=== PATIENT | male | born 1970 | race Asian ===

== ENCOUNTER 2017-04-29 17:08 | Outpatient (CLI) | payer BC ==
[~2017-04-29 17:08] MED LIST: ALBU90AE13 INH; BUT/APAP/CA1 PO; CEFU250T2 PO; FLUT0.05 NAS; PANT40TA PO; UNITH DIRECT75 MCG PO
[2017-04-29 17:28] LABS: PLATELET COUNT 257 K/uL (142-355)
[2017-04-29 17:54] LABS: POTASSIUM 3.5 mmol/L (3.6-5.2); SODIUM 140 mmol/L (136-145)
== END 2017-04-29 19:05 | disposition home or self-care (01) ==
LOC: LABW 17:08
PROVIDERS: Physician Assistant
DX: R51 Headache (principal); M54.2 Cervicalgia; M79.1 Myalgia; R35.8 Other polyuria
CPT/HCPCS: 36415; 80053; 83735; 84439; 84443; 85027

== ENCOUNTER 2017-06-15 10:17 | Outpatient (CLI) | payer BC | END 2017-06-15 11:20 | disposition home or self-care (01) | LOC: RAD 10:17 | DX: J01.00 Acute maxillary sinusitis, unspecified (principal); J20.9 Acute bronchitis, unspecified ==

== ENCOUNTER 2017-07-07 04:42 | Emergency (ER) | payer BC ==
[~2017-07-07] VITALS: Ht 165.1 cm; Wt 105.7 kg
[2017-07-07] MEDS ORDERED: TESSALON PER100 MG PO (05:00)
[2017-07-07] MEDS ORDERED: METH4PAK3 PO (05:01)
[2017-07-07] MEDS ORDERED: Z-PAK PO (05:02)
[2017-07-07 05:58] LABS: PLATELET COUNT 275 K/uL (142-355)
[2017-07-07 06:42] VITALS: BP 139/97; TEMP 98
== END 2017-07-07 06:51 | disposition home or self-care (01) ==
LOC: ED 04:42
PROVIDERS: Emergency Medicine
DX: J45.909 Unspecified asthma, uncomplicated (principal)
CPT/HCPCS: 36415; 85027; 94640; 94664; 99283

== ENCOUNTER 2017-10-24 12:07 | Day surgery (SDC) | payer BC ==
[~2017-10-24 12:07] MED LIST changes: +METH4PAK3 PO; +TESSALON PER100 MG PO; +Z-PAK PO
[2017-10-24 12:34] LABS: PLATELET COUNT 257 K/uL (142-355)
== END 2017-10-24 16:30 | disposition home or self-care (01) ==
LOC: OR 12:07
PROVIDERS: Internal Medicine Gastroenterology
PROC: 0DB68ZZ Excision of Stomach, Via Natural or Artificial Opening Endoscopic (ICD-10-PCS; principal; 2017-10-24)
PROC: 0DB88ZZ Excision of Small Intestine, Via Natural or Artificial Opening Endoscopic (ICD-10-PCS; 2017-10-24)
DX: K21.0 Gastro-esophageal reflux disease with esophagitis (principal); K29.50 Unspecified chronic gastritis without bleeding; R10.13 Epigastric pain; R14.3 Flatulence; R14.0 Abdominal distension (gaseous); R10.9 Unspecified abdominal pain
CPT/HCPCS: 80053; 85027; J2001; J2250; J2704

== ENCOUNTER 2018-03-03 08:15 | Outpatient (CLI) | payer BC ==
[2018-03-03 08:29] LABS: PLATELET COUNT 254 K/uL (142-355)
[2018-03-03 09:02] LABS: POTASSIUM 3.8 mmol/L (3.6-5.2)
== END 2018-03-03 22:29 | disposition home or self-care (01) ==
LOC: LABW 08:15
PROVIDERS: Internal Medicine
DX: R53.83 Other fatigue (principal); E78.00 Pure hypercholesterolemia, unspecified
CPT/HCPCS: 36415; 80053; 80061; 81000; 84439; 84443; 85027

== ENCOUNTER 2019-05-16 11:20 | Outpatient (CLI) | payer BC | END 2019-05-16 21:50 | disposition home or self-care (01) | LOC: RAD 11:20 | DX: R10.84 Generalized abdominal pain (principal) ==

== ENCOUNTER 2020-10-15 13:17 | Outpatient (CLI) | payer BC | END 2020-10-15 23:06 | disposition home or self-care (01) | LOC: RAD 13:17 | PROVIDERS: ATTEND Internal Medicine | DX: M79.605 Pain in left leg (principal); R22.42 Localized swelling, mass and lump, left lower limb ==

== ENCOUNTER 2021-01-03 11:18 | Outpatient (CLI) | payer BC, OTHER | END 2021-01-03 19:46 | disposition home or self-care (01) | LOC: RAD 11:18 | PROVIDERS: ATTEND Internal Medicine | DX: R05 Cough (principal); R06.02 Shortness of breath; Z86.16 Personal history of COVID-19 ==

== ENCOUNTER 2021-09-05 17:00 | Emergency (ER) | payer BC ==
[~2021-09-05] VITALS: Ht 165.1 cm; Wt 99.8 kg
[~2021-09-05 17:00] MED LIST changes: +PANTOPRAZOLE 40MG TA PO
[2021-09-05 17:47] LABS: PLATELET COUNT 277 K/uL (142-355)
[2021-09-05 17:55] LABS: POTASSIUM 3.6 mmol/L (3.6-5.2)
[2021-09-05 18:08] LABS: PARTIAL THROMBOPLASTIN TIME 29.6 SECONDS (24.5-33.6)
[2021-09-05 18:58] VITALS: BP 148/100; TEMP 98.1
== END 2021-09-05 18:58 | disposition home or self-care (01) ==
LOC: ED 17:00
PROVIDERS: Emergency Medicine
DX: R04.2 Hemoptysis (principal); K59.09 Other constipation; R03.0 Elevated blood-pressure reading, without diagnosis of hypertension
CPT/HCPCS: 80053; 80320; 82150; 83690; 84484; 85027; 85610; 85730; 93005; 99283

== ENCOUNTER 2022-05-01 00:13 | Emergency (ER) | payer BC ==
[~2022-05-01] VITALS: Ht 165.1 cm; Wt 104.3 kg
[2022-05-01 01:25] LABS: PLATELET COUNT 256 K/uL (142-355)
[2022-05-01 01:26] LABS: POTASSIUM 4.2 mmol/L (3.6-5.2)
[2022-05-01 04:00] VITALS: BP 148/97; TEMP 97.6
== END 2022-05-01 04:00 | disposition home or self-care (01) ==
LOC: ED 00:13
PROVIDERS: Family Medicine
DX: N13.2 Hydronephrosis with renal and ureteral calculous obstruction (principal)
CPT/HCPCS: 36415; 80053; 81002; 81015; 85027; 96360; 96374; 96375; 99284; J1885; J2175; J2405

== ENCOUNTER 2022-06-23 08:28 | Emergency (ER) | payer OTHER, BC ==
[~2022-06-23] VITALS: Ht 165.1 cm; Wt 104.3 kg
[2022-06-23 11:45] VITALS: BP 120/82; TEMP 98.4
== END 2022-06-23 11:45 | disposition home or self-care (01) ==
LOC: ED 08:28
DX: S43.402A Unspecified sprain of left shoulder joint, initial encounter (principal); X58.XXXA Exposure to other specified factors, initial encounter; Y92.89 Other specified places as the place of occurrence of the external cause
CPT/HCPCS: 96372; 99283; J1885